=== PATIENT | male | born 2000 | race Hispanic/Latino ===

== ENCOUNTER 2024-09-29 12:37 | Emergency (ER) | payer OTHER ==
[~2024-09-29] VITALS: Ht 180.3 cm; Wt 96.3 kg
[2024-09-29] MEDS: KETOROLAC 60MG 2ML VIAL IM ONE (18:06)
[2024-09-29] MEDS ORDERED: CYCL-707 PO (19:32)
[2024-09-29 19:47] VITALS: BP 144/86; TEMP 97.5; O2SAT 98
== END 2024-09-29 19:52 | disposition home or self-care (01) ==
LOC: M ED 12:37
DX: M51.26 Other intervertebral disc displacement, lumbar region (principal); M51.360 Other intervertebral disc degeneration, lumbar region with discogenic back pain only; F10.10 Alcohol abuse, uncomplicated; Z79.899 Other long term (current) drug therapy
CPT/HCPCS: 72131; 96372; 99283; J1885